=== PATIENT | male | born 1955 | race Caucasian/White ===

== ENCOUNTER 2021-01-10 08:29 | Outpatient (CLI) | payer OTHER, SELFPAY | END 2021-01-10 08:30 | disposition home or self-care (01) | LOC: ANHCOVIDVC 08:29 | DX: Z23 Encounter for immunization (principal) | CPT/HCPCS: 0001A; 91300 ==

== ENCOUNTER 2021-01-31 08:27 | Outpatient (CLI) | payer OTHER, SELFPAY | END 2021-01-31 08:28 | LOC: ANHCOVIDVC 08:27 | DX: Z23 Encounter for immunization (principal) | CPT/HCPCS: 0002A; 91300 ==

== ENCOUNTER 2021-07-28 09:48 | Outpatient (RCR) | payer OTHER, SELFPAY ==
--- NOTE | 2021-07-28 11:25 | STOPEVAL ---
SPEECH THERAPY INITIAL EVALUATION AND DISCHARGE: Thank you for referring Derian Tineo to [facility].? Please review, sign, date and return this evaluation and subsequent discharge [facility]. I agree with and certify that the following plan of care is medically necessary. Referring Physician Date Attending Provider: Chepe Matamoros, Outpatient Past Medical History Past Medical History Source of Past Medical History Patient Endocrine History Hx Diabetes Yes: Type 2 HEENT History Hx Cataracts Yes: removed Pain Assessment Timing of Pain Assessment Timing of Pain Assessment Assessment Self Report Self Report Pain Level 0 Pain Score Pain Score 0: Self Report Bedside Swallow Evaluation General Reports Dysphagia Yes: choking with drinking Onset of Dysphagia many, many years Related History 3 neck surgeries; previous History of Feeding Problems Previous Swallow Evaluation Meal Observed Bedside Swallows Other Factors Impacting Dysphagia Head/Neck Surgery History of Pneumonia No Intake Method Prior to Swallow Oral Evaluation Liquid Consistency Prior to Swallow Thin (0) Evaluation Cognition During Swallowing Alert,Attentive Consistency Solid Consistency Method of Presentation Finger/Hand Behaviors Observed Apparently Normal Swallow Occurrence of Coughing None Vocal Quality After Swallowing Clear Swallow Palpation Results Good Swallow Initiation,Strong Laryngeal Elevation Pureed Consistency Other Swallow Amount applesauce and pudding Method of Presentation Spoon Behaviors Observed Apparently Normal Swallow Occurrence of Coughing None Vocal Quality After Swallowing Clear Swallow Palpation Results Good Swallow Initiation,Strong Laryngeal Elevation Thin Uncontrolled 2 Method of Presentation Straw Behaviors Observed Apparently Normal Swallow Occurrence of Coughing None Vocal Quality After Swallowing Clear Swallow Palpation Results Good Swallow Initiation,Strong Laryngeal Elevation Thin Uncontrolled 1 Method of Presentation Cup Behaviors Observed Apparently Normal Swallow Occurrence of Coughing None Vocal Quality After Swallowing Clear Swallow Palpation Results Good Swallow Initiation,Strong Laryngeal Elevation Thin 5 mL Method of Presentation Spoon Behaviors Observed Apparently Normal Swallow Occurrence of Coughing None Vocal Quality After Swallowing Clear Swallow Palpation Results Good Swallow Initiation,Strong
== END 2021-07-28 16:21 | disposition home or self-care (01) ==
LOC: ANHST 09:48
PROVIDERS: Visit Provider Otolaryngology
DX: R13.10 Dysphagia, unspecified (principal)
CPT/HCPCS: 92610

== ENCOUNTER 2021-12-04 00:06 | Day surgery (SDC) | payer OTHER, SELFPAY ==
[2021-11-27 15:41] VITALS: BMI 27.6
[2021-12-04 09:18] VITALS: BP 136/76; PULSE 96; RESP 18; TEMP 36.9; O2SAT 98; BMI 29.6
[2021-12-04] MEDS: LACTATED RINGERS 1,000 ML 150 ML IV CONT (09:34)
[2021-12-04 09:38] LABS: Glucose Point of Care 195 mg/dl (65-105)
--- NOTE | 2021-12-04 09:49 | P.PNAN_ITS ---
Anes - Initial Pre Proc Eval Procedure: Operation Date: 12/04/21 10:15 Proposed Procedures p Colonoscopy - Bj Coppola MD Date/Time: 12/04/21 09:49 Surgeon: Bj Coppola MD Pre Op Diagnosis: positive cologuard Patient Data Age: 66 Gender: M Height: 1.8 m Weight: 96.4 kg Last Vital Signs Temp 98.5 F 12/04/21 09:18 Pulse 96 12/04/21 09:18 Resp 18 12/04/21 09:18 BP 136/76 12/04/21 09:18 Pulse Ox 98 12/04/21 09:18 Allergies Allergy/AdvReac Type Severity Reaction Status Date / Time No Known Allergies Allergy Verified 12/04/21 09:17 Home Medications Medication Instructions Recorded Confirmed Type atorvastatin 40 mg PO DAILY 11/27/21 11/27/21 History blood-glucose sensor [Dexcom G6 11/27/21 11/27/21 History Sensor] blood-glucose transmitter [Dexcom 11/27/21 11/27/21 History G6 Transmitter] folic acid 400 mcg PO DAILY 11/27/21 11/27/21 History insulin aspart U-100 [Novolog 1 sliding scale dose SUBCUT TID 11/27/21 11/27/21 History Flexpen U-100 Insulin] lisinopril 20 mg PO DAILY 11/27/21 11/27/21 History semaglutide [Ozempic] 0.5 mg SUBCUT WEEKLY 11/27/21 11/27/21 History Laboratory Tests 12/04/21 09:33 POC Capillary Glucose 195 mg/dl H mg/dl (65-105) Patient hx anesthesia problems: none Family hx anesthesia problems: none Results Review: All pre-operative results and documents have been reviewed as part of the pre-operative evaluation. [facility] [place] Family History Family History (Updated 05/18/18 @ 07:57 by DOCTOR UNKNOWN) Father Diabetes mellitus Family history of cardiovascular disease Social History Social History Smoking status: Never smoker Tobacco type: cigarettes Alcohol intake: current Alcohol use details: socially Substance use: never Substance use type: does not use Living arrangements: with family Anes - Eval Final PreProcedure Day of Procedure 12/04/21 09:49 Patient weight: obese Heart: regular rate and rhythm Lungs: clear to auscultation Airway: Mallampati scale class II Neurological: alert and oriented Last oral intake: >/= 8 hours ASA classification: II Emergent: no Anesthetic plan: proceed Anesthesia type and monitoring: general GIVS and standard monitoring Results Review: All pre-operative results and documents have been reviewed as part of the pre-operative evaluation. Informed Consent: The patient's anesthetic plan and its attendant risks and benefits were discussed with the patient/family/POA. Questions were solicited and answers provided to the satisfaction of the patient/family/POA.
--- NOTE | 2021-12-04 09:52 | WPDGICN ---
Assessment and Plan Assessment and plan (1) Positive colorectal cancer screening using Cologuard test: Code(s): R19.5 - Other fecal abnormalities Status: Acute Assessment and Plan: Patient presents for screening colonoscopy because of positive Cologuard test. Further recommendations will be given after endoscopy. GI Consult Note Consult date/time: 12/04/21 09:52 HPI: Derian Tineo is a 66 year old male Presents for screening colonoscopy. Patient recently found to have positive Cologuard test. Patient reports his weight appetite bowel movements are normal. He denies abdominal pain. He has had no bleeding. Family history is noncontributory. Review of Systems Review of Systems: All systems reviewed & are unremarkable except as noted in HPI and below [facility] Family History Family History (Updated 05/18/18 @ 07:57 by DOCTOR UNKNOWN) Father Diabetes mellitus Family history of cardiovascular disease Social History Social History Smoking status: Never smoker Tobacco type: cigarettes Alcohol intake: current Alcohol use details: socially Substance use: never Substance use type: does not use Living arrangements: with family Meds Home Medications and Allergies Home Medications Medication Instructions Recorded Confirmed Type atorvastatin 40 mg PO DAILY 11/27/21 11/27/21 History blood-glucose sensor [Dexcom G6 11/27/21 11/27/21 History Sensor] blood-glucose transmitter [Dexcom 11/27/21 11/27/21 History G6 Transmitter] folic acid 400 mcg PO DAILY 11/27/21 11/27/21 History insulin aspart U-100 [Novolog 1 sliding scale dose SUBCUT TID 11/27/21 11/27/21 History Flexpen U-100 Insulin] lisinopril 20 mg PO DAILY 11/27/21 11/27/21 History semaglutide [Ozempic] 0.5 mg SUBCUT WEEKLY 11/27/21 11/27/21 History Allergies Allergy/AdvReac Type Severity Reaction Status Date / Time No Known Allergies Allergy Verified 12/04/21 09:17 Vital Signs Vital Signs - 24 hr 12/04/21 09:18 Temperature 98.5 F Pulse Rate 96 Respiratory Rate 18 Blood Pressure 136/76 Pulse Oximetry 98 Exam Narrative: Physical exam reveals patient to be alert. Vital signs stable. HEENT exam unremarkable. Patient is anicteric. Lungs are clear to auscultation and percussion. Heart is without murmur or extra sounds. Abdominal exam bowel sounds present soft nontender with no organomegaly. Digital external rectal exam is normal.
[2021-12-04 10:26] VITALS: BP 104/65; PULSE 80; RESP 17; O2SAT 93
[2021-12-04 10:36] VITALS: BP 91/72; PULSE 91; RESP 17; O2SAT 98
[2021-12-04 10:46] VITALS: BP 101/50; PULSE 88; RESP 21; O2SAT 95
--- NOTE | 2021-12-04 10:58 | SUR.PHASEII ---
Pt blood sugar 157 per pt Dexcom.
== END 2021-12-04 10:58 | disposition home or self-care (01) ==
PROVIDERS: PCP Student in an Organized Health Care Education/Training Program; Visit Provider Internal Medicine Gastroenterology
PROC: 0DJD8ZZ Inspection of Lower Intestinal Tract, Via Natural or Artificial Opening Endoscopic (ICD-10-PCS; CPT 45378; principal; 2021-12-04 10:15)
DX: R19.5 Other fecal abnormalities (principal); D12.5 Benign neoplasm of sigmoid colon; Z79.4 Long term (current) use of insulin; Z79.899 Other long term (current) drug therapy; E66.9 Obesity, unspecified; Z68.29 Body mass index [BMI] 29.0-29.9, adult
CPT/HCPCS: 45385; 82948; 88305; J2001; J2704; J7120

== ENCOUNTER 2025-07-10 13:48 | Outpatient (CLI) | payer OTHER, SELFPAY ==
--- NOTE | ~2025-07-10 | US_ITS ---
EXAMINATION: US arterial ankle brachial ind DATE: 07/10/2025 14:38 INDICATION: Abnormal findings on diagnostic imaging TECHNIQUE: Segmental pressures and plethysmographic and Doppler waveforms of the brachial and lower extremity arteries were obtained. COMPARISON: None. FINDINGS: Right and left brachial artery pressures of 145 mm Hg and 141 mm Hg, respectively, are concordant (normal difference <= 30 mmHg). The right ankle-brachial index (ARPAN) is unable to be obtained due to inability to occlude the vessels at the right ankle (normal >= 0.9-1.0). The right great toe-brachial index (TBI) is 0.38 (normal >= 0.65). Arterial Doppler waveforms are biphasic with brisk systolic upstrokes at both right posterior tibial and dorsalis pedis arteries. The left ARPAN is similarly unable to be obtained due to inability to occlude the vessels at the left ankle. The left TBI is 0.97. Arterial Doppler waveforms are biphasic with brisk systolic upstrokes at both left posterior tibial and dorsalis pedis arteries. IMPRESSION: 1. Arterial occlusive disease to the right lower limb with mildly decreased right TBI. 2. No significant arterial occlusive disease to the left lower limb with normal left TBI. 2. ARPAN is unable to be obtained due to inability to occlude the arteries at either ankle which could be related to vessel wall calcification. Reviewed, dictated and finalized at location A. IMPRESSION: 1. Arterial occlusive disease to the right lower limb with mildly decreased rig ht TBI. 2. No significant arterial occlusive disease to the left lower limb with normal left TBI. 2. ARPAN is unable to be obtained due to inability to occlude the arteries at eit her ankle which could be related to vessel wall calcification.
--- OUTSIDE RECORDS SUMMARY | 2025-07-10 14:08 | XMS_ITS | Clinical Summary ---
Author Organization [facility] Address [facility] [place] [address] Care Team Providers Care Straight Knife Cutter Machine Name Role Phone BartolomesusyEliza ruiz Primary Care Provider + Allergies No known active allergies Medications Lancets (ONETOUCH ULTRASOFT) lancets 022 Active Continuous Blood Gluc Sensor (DEXCOM G7 SENSOR) MiscIndications :Type 2 diabetes mellitus with other circulatory complication, with long-term current use of insulin ([facility]) Apply and change sensor every 10 days to monitor glucose 9 each 1 023 Active GEMTESA 75 MG tablet Take 1 tablet (75 mg total) by mouth daily. 024 Active Insulin Pen Needle (PEN NEEDLES) 31G X 5 MM MiscIndications :Type 2 diabetes mellitus with other circulatory complication, with long-term current use of insulin ([facility]) 1 Device by Does not apply route 4 (four) times daily. 1000 each 2 024 Active methocarbamol (ROBAXIN) 500 MG tabletIndicatio ns:Muscle spasm TAKE 1 TABLET BY MOUTH EVERY 8 HOURS NEEDED FOR SPASMS 90 tablet 025 Active Insulin Glargine, 2 Unit Dial, (TOUJEO MAX SOLOSTAR) 300 UNIT/ML Solution Pen-injectorInd ications:Type 2 diabetes mellitus with other circulatory complication, with long-term current use of insulin ([facility]CC) INJECT 86 UNITS INTO THE SKIN DAILY 24 mL 1 025 Active semaglutide (OZEMPIC) 2 mg/dose injection (PEN)Indication s:Diabetes Mellitus Inject 2 mg into the skin once a week. Indications: Diabetes 9 mL 1 025 Active atorvastatin (LIPITOR) 40 MG tabletIndicatio ns:Hyperlipidem ia, unspecified TAKE 1 TABLET BY MOUTH EVERYDAY AT BEDTIME 90 tablet 025 Active rOPINIRole (REQUIP) 0.25 MG tabletIndicatio ns:Abnormal x-ray,Atheroscl erotic plaque Take 1 tablet 1 to 3 hours prior to initiation of sleep every night 30 tablet 2 025 Active tadalafil (CIALIS) 20 MG tabletIndicatio ns:Erectile dysfunction, unspecified erectile dysfunction type TAKE 1 TABLET BY MOUTH EVERY DAY NEEDED FOR ERECTILE DYSFUNCTION 18 tablet 1 025 Active insulin aspart (NOVOLOG FLEXPEN) 100 UNIT/ML injection (PEN)Indication s:Type 2 diabetes mellitus with other circulatory complication, with long-term current use of insulin ([facility]) INJECT 5 UNITS SUBCUTANEOUSLY 3 TIMES A DAY BEFORE MEALS 45 mL 1 025 Active amLODIPine (NORVASC) 5 MG tabletIndicatio ns:Essential (primary) hypertension TAKE 1 TABLET (5 MG TOTAL) BY MOUTH DAILY. 90 tablet 3 025 Active amLODIPine (NORVASC) 5 MG tabletIndicatio ns:Essential (primary) hypertension TAKE 1 TABLET (5 MG TOTAL) BY MOUTH DAILY. 90 tablet 025 2024 Discontinued insulin aspart (NOVOLOG FLEXPEN) 100 UNIT/ML injection (PEN)Indication s:Type 2 diabetes mellitus with other circulatory complication, with long-term current use of insulin ([facility]) INJECT 0-5 UNITS SUBCUTANEOUSLY 3 TIMES A DAY BEFORE MEALS 025 2024 Discontinued tadalafil (CIALIS) 20 MG tabletIndicatio ns:Erectile dysfunction, unspecified erectile dysfunction type TAKE 1 TABLET BY MOUTH EVERY DAY NEEDED FOR ERECTILE DYSFUNCTION 6 tablet 1 025 2024 Discontinued insulin aspart (NOVOLOG FLEXPEN) 100 UNIT/ML injection (PEN)Indication s:Type 2 diabetes mellitus with other circulatory complication, with long-term current use of insulin ([facility]) INJECT 15 UNITS SUBCUTANEOUSLY 3 TIMES A DAY BEFORE MEALS 45 mL 1 025 2024 Discontinued(R eorder) Active Problems Problem Noted Date Diagnosed Date Esophageal dysmotility 08/27/2022 Dysphagia, oropharyngeal phase 08/27/2022 Cervical spinal stenosis 08/25/2019 Overview (08/15/2021): Added automatically from request for surgery [id number] Type 2 diabetes mellitus ([facility]) 03/24 Overview (08/15/2021): DMII WO CMP UNCNTRLD Pure hypercholesterolemia 03/24/2014 Overview (08/15/2021): PURE HYPERCHOLESTEROLEM Hypertension 03/24/2014 Overview (08/15/2021): HYPERTENSION NOS Encounters Date Type Department Care Team Description 06/18/2025 MyChart Message Enc [facility] Family & Internal [address] [address] Eliza Payne DO novalog 06/04/2025 MyChart Message Enc [facility] Family Internal [address] [address] Eliza Payne, DO Phone number 05/03/2025 8:40 AM CDT Office Visit [facility] Family & Internal [address] [address] Eliza Payne DO Diabetes 05/03/2025 Results Follow-Up [facility] Internal [address] [address] Eliza Payne, DO HEMOGLOBIN, GLYCOSYLATED, XR FOOT RT 3V, VITAMIN B-12, Additional followed-up results: 7 05/03/2025 Travel from Last 3 Months Immunizations Immunization Administration Dates Next Due Arexvy Respiratory Syncytial Virus (RSV, adjuvanted) 0.5 mL, PF 09/17/2023 Fluad influenza vaccine, Ac drivalent (aIIV4), Inactivated, adjuvanted, preservative free, 0.5 mL,IM use 09/17/2023 Fluzone High Dose (IIV, trivalent, 0.5mL) 2023 Influenza (Generic) 08/08/2019,08/28/2018 Influenza Adult (Generic) 08/21/2022 Pneumococcal (Prevnar 20) 01/26/2023 Shingrix 01/03/2020,11/15/2019,09/13/2019 Tdap (Adacel) 08/15/2021 Family History Medical History Relation Comments Diabetes Father Heart Disease Father Diabetes Mother PA Paternal Grandfather Diabetes Sister Relation Status Comments Father Maternal Grandfather Maternal Grandmother Mother Paternal Grandfather Paternal Grandmother Sister Social History Tobacco Use Types Packs/Day Years Used Date Smoking Tobacco: Never Passive Smoke Exposure: Past Smokeless Tobacco: Never Tobacco Cessation:Counseling Given: Not Answered Alcohol Use Standard Drinks/Week Comments Yes 6.7 (1 standard drin k = 0.6 oz pure alcohol) 2.5 glass of wine 3 times a week PHQ-2 Answer Date Recorded Patient Health Questionnaire-2 Score 0 01/31/2025 Sex and Gender Information Value Date Recorded Sex Assigned at Male 03/14/2024 2:46 PM CDT 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 Gender Identity Male 03/14/2024 2:46 PM CDT Sexual Orientation Straight 03/14/2024 2: 46 PM CDT Occupation Industry Job Start Date Job End Date Not on file Not on file Not on file Not on file Last Filed Vital Signs Vital Sign Reading Time Taken Comments Blood Pressure 130/78 05/03/2025 8:48 AM CDT Pulse 87 05/03/2025 8:48 AM CDT Temperature 36.7 C (98.1 F) 05/03/2025 8:48 AM CDT Respiratory Rate 16 05/03/2025 8:48 AM CDT Oxygen Saturation 98% 05/03/2025 8:48 AM CDT Inhaled Oxygen Concentration - - Weight 88.8 kg (195 lb 11.2 oz) 05/03/2025 8:48 AM CDT Height 177.8 cm (5' 10) 05/03/2025 8:48 AM CDT Body Mass Index 28.08 05/03/2025 8:48 AM CDT Plan of Treatment Upcoming Encounters Date Type Department Care Team (Late st Contact Info) Description 08/03/2025 8:00 AM CDT Office Visit [facility] Family & Internal Medicine - [address] [id number] [place] [address] Eliza Payne DO [facility] [place] [address] Health Maintenance Due Date Last Done Comments Annual Medicare Wellness Visit 2022 COVID-19 Vaccine ( season) 2025 08/16/2024, 08/22/2023, 10/23/2022, Additional history exists Postponed from 02/14/2025 (Future Appointment) Hemoglobin A1C 11/02/2025 05/03/2025, 01/07, 10/02/2024, Additional history exists Diabetes: Retinopathy Eye Exam 01/10/2026 01/13/2024, 11/11/2023, 07/22/2023, Additional history exists Postponed from 01/12/2025 (Going to Outside Clinic) Kidney Health Evaluation 05/03/2026 05/03/2025 Lipid Panel 05/03/2026 05/03/2025, 09/09, 10/22/2023, Additional history exists Colorectal Cancer Screening Colonoscopy (10 Years) 12/04/2026 12/04/2021 DTaP, Tdap and Td Vaccines (2 - Td or Tdap) 08/15/2031 08/15/2021 Zoster Vaccines Completed 01/03/2020, 06/2020, 09/13/2019 Colorectal Cancer Screening FIT-DNA (3 Years) Discontinued 09/03/2021 Hepatitis C Completed 03/20/2022 Pneumococcal Vaccine: 50+ Years Completed 01/26/2023 RSV Immunization or 60+ Years Completed 09/17/2023 PHQ-2 (Physician [place]) Completed 01/31/2025 Meningococcal B Vaccine Aged Out No l onger eligible based on patient's age to complete this topic Meningococcal Vaccine Aged Out No jaswinder savana eligible based on patient's age to complete this topic RSV Immunizations Under 20 Months Aged Out No longer eligible based on patient's age to complete this topic Procedures Procedure Name Priority Date/Time Associated Diagnosis Comments VITAMIN D, 25 OH Routine 05/03/2025 9:48 AM CDT Type 2 diabetes mellitus with other circulatory complication, with long-term current use of insulin (CMS/HCC HHS/HCC) Hypertension associated with type 2 diabetes mellitus (CMS/HCC HHS/HCC) Hyperlipidemia associated with type 2 diabetes mellitus (CMS/HCC HHS/HCC) Vitamin D deficiency CBC W/DIFF AUTOMATED Routine 05/03/2025 9:48 AM CDT Type 2 diabetes mellitus with other circulatory complication, with long-term current use of insulin (CMS/HCC HHS/HCC) Hypertension associated with type 2 diabetes mellitus (CMS/HCC HHS/HCC) Hyperlipidemia associated with type 2 diabetes mellitus (CMS/HCC HHS/HCC) COMPREHENSIVE METABOLIC PANEL Routine 05/03/2025 9:48 AM CDT Type 2 diabetes mellitus with other circulatory complication, with long-term current use of insulin (CMS/HCC HHS/HCC) Hypertension associated with type 2 diabetes mellitus (CMS/HCC HHS/HCC) Hyperlipidemia associated with type 2 diabetes mellitus (CMS/HCC HHS/HCC) ALBUMIN URINE RANDOM W/CREATININE Routine 05/03/2025 9:48 AM CDT Type 2 diabetes mellitus with other circulatory complication, with long-term current use of insulin (CMS/HCC HHS/HCC) Hypertension associated with type 2 diabetes mellitus (CMS/HCC HHS/HCC) Hyperlipidemia associated with type 2 diabetes mellitus (CMS/HCC HHS/HCC) TSH W/REFLEX Routine 05/03/2025 9:48 AM CDT Type 2 diabetes mellitus with other circulatory complication, with long-term current use of insulin (CMS/HCC HHS/HCC) Hypertension associated with type 2 diabetes mellitus (CMS/HCC HHS/HCC) Hyperlipidemia associated with type 2 diabetes mellitus (CMS/HCC HHS/HCC) LIPID PANEL Routine 05/03/2025 9:48 AM CDT Type 2 diabetes mellitus with other circulatory complication, with long-term current use of insulin (CMS/HCC HHS/HCC) Hypertension associated with type 2 diabetes mellitus (CMS/HCC HHS/HCC) Hyperlipidemia associated with type 2 diabetes mellitus (CMS/HCC HHS/HCC) FERRITIN Routine 05/03/2025 9:48 AM CDT Type 2 diabetes mellitus with other circulatory complication, with long-term current use of insulin (CMS/HCC HHS/HCC) Hypertension associated with type 2 diabetes mellitus (CMS/HCC HHS/HCC) Hyperlipidemia associated with type 2 diabetes mellitus (CMS/HCC HHS/HCC) Restless leg VITAMIN B-12 Routine 05/03/2025 9:48 AM CDT Type 2 diabetes mellitus with other circulatory complication, with long-term current use of insulin (CMS/HCC HHS/HCC) Hypertension associated with type 2 diabetes mellitus (CMS/HCC HHS/HCC) Hyperlipidemia associated with type 2 diabetes mellitus (CMS/HCC HHS/HCC) Restless leg XR FOOT RT 3V Routine 05/03/2025 9:18 AM CDT Right foot pain COLLECTION VENOUS BLOOD VENIPUNCTURE Routine 05/03/2025 9:13 AM CDT Type 2 diabetes mellitus with other circulatory complication, with long-term current use of insulin (CMS/HCC HHS/HCC) Hypertension associated with type 2 diabetes mellitus (CMS/HCC HHS/HCC) Hyperlipidemia associated with type 2 diabetes mellitus (CMS/HCC HHS/HCC) COLLECT.CAPILLARY (FNGR,HEEL,EAR) Routine 05/03/2025 8:36 AM CDT Type 2 diabetes mellitus with other circulatory complication, with long-term current use of insulin (CMS/HCC HHS/HCC) HEMOGLOBIN, GLYCOSYLATED Routine 05/03/2025 Type 2 diabetes mellitus with other circulatory complication, with long-term current use of insulin (CMS/HCC HHS/HCC) DIABETIC RETINOPATHY EXAM (POSITIVE)(SCAN ORDER) Routine 01/13/2024 HEPATITIS C ANTIBODY Routine 03/20/2022 9:11 AM CDT Need for hepatitis C screening test COLONOSCOPY GENERIC (SCAN ORDER) 12/04/2021 COLOGUARD (EXACT SCIENCE) Routine 09/03/2021 9:45 AM CDT Screening for malignant neoplasm of colon from Last 3 Months or Most Recently Relevant to Health Maintenance Results * TSH W/REFLEX (05/03/2025 9:48 AM CDT) TSH 1.128 0.358 - 3.740 uIU/ML 05/03/2025 5:03 PM CDT [facility] 05/03/2025 9:48 AM CDT Eliza Payne LABORATORY Final Re sult Performing Organization Address [facility]/ZIP Co de Phone Number [facility] [address] [place] [phone], * VITAMIN B-12 (05/03/2025 9:48 AM CDT) Pathologist [facility] VITAMIN B12 S/P/B 316 193 - 986 PG/ML 05/03/2025 5:03 PM CDT [facility] 05/03/2025 9:48 AM CDT Eliza Payne LABORATORY Final Re sult Performing Organization Address City/[facility]/ZIP Co de Phone Number [facility] [address] [place] [address], [place] [phone] * ALBUMIN URINE RANDOM W/CREATININE (05/03/2025 9:48 AM CDT) Pathologist [facility] MICROALBUMIN (U) 18.0 <20 MG/L 05/03/20 6:27 PM CDT [facility] CREATININE RANDOM (U) 130.2 MG/DL 05/03/2025 6:27 PM CDT [facility] ALBUMIN/CREAT RATIO 13.8 <30 MG/G 05/03/2025 6:27 PM CDT [facility] URINE SPECIMEN / Unknown 05/03/2025 9:48 AM CDT Eliza Payne DO URINE ORDERABLES Final R esult [facility] MICHAEL, [place] [address] [place] [address], * (ABNORMAL) COMPREHENSIVE METABOLIC PANEL (05/03/2025 9:48 AM CDT) Pathologist [facility] SODIUM S/P/B 141 136 - 145 MMOL/L 05/03/2025 5:03 PM CDT [facility] POTASSIUM S/P/B 4.7 3.5 - 5.1 MMOL/L 05/03/2025 5:03 PM CDT [facility] CHLORIDE S/P/B 104 98 - 107 MMOL/L 05/03/2025 5:03 PM CDT [facility] CO2 30.9 21 - 32 MMOL/L 05/03/2025 5:03 PM CDT [facility] GLUCOSE 129(H) 70 - 99 MG/DL 05/03/2025 5:03 PM T [facility] BUN 22(H) 7 - 18 MG/DL 05/03/2025 5:03 PM CDT [facility] CREATININE S/P/B 1.15 0.70 - 1.30 MG/DL 05/03/2025 5:03 PM CDT [facility] CALCIUM S/P/B 9.8 8.4 - 10.5 MG/DL 05/03/2025 5:03 PM CDT [facility] BILIRUBIN TOTAL S/P/B 0.9 0.2 - 1.0 MG/DL 05/03/2025 5:03 PM [facility] ALKALINE PHOSPHATASE S/P/B 70 45 - 115 U/L 05/03/2025 5:03 PM [facility] AST 17 15 - 37 U/L 05/03/2025 5:03 PM [facility] ALT 26 16 - 63 U/L 05/03/2025 5:03 PM [facility] TOTAL PROTEIN S/P/B 7.1 6.4 - 8.2 G/DL 05/03/2025 5:03 PM [facility] ALBUMIN S/P/B 4.1 3.4 - 5.0 G/DL 05/03/2025 5:03 [facility] ANION GAP 6.1 5 - 15 MMOL/L 05/03/2025 5:03 PM [facility] Comment:REFERENCE RANGE NOT ESTABLISHED OSMOLALITY (CALC) 297 MOSM/KG 025 5:03 PM [facility] Comment:REFERENCE RANGE NOT ESTABLISHED GFR ESTIMATE 69(L) >90 ML/MIN/1. 73 M2 05/03/2025 5:03 PM [facility] GFR NOTES GFR REFERENCE S: 05/03/2025 5:03 [facility] Comment: THE ESTIMATED GFR IS CALCULATED USING THE 2020 CKD-EPI EQUATION. THE FOLLOWING CATEGORIES FOR GRADING RENAL FUNCTION ARE RECOMMENDED BY THE INTERNATIONAL SOCIETY OF NEPHROLOGY (KDIGO 2012 CLINICAL PRACTICE GUIDELINE). G1,NORMAL OR HIGH: >89 ml/min/1.73 m2 G2,MILDLY DECREASED: 60-89 ml/min/1.73 m2 G3A,MILDLY TO MODERATELY DECREASED: 45-59 ml/min/1.73 m2 G3B,MODERATELY TO SEVERELY DECREASED: 30-44 ml/min/1.73 m2 G4,SEVERELY DECREASED: 15-29 ml/min/1.73 m2 G5,KIDNEY FAILURE: <15 ml/min/1.73 m2 05/03/2025 9:48 AM CDT Eliza Payne DO LABORATORY Final Re sult [facility] [place] [address] [place] [address], [place] [phone] * (ABNORMAL) LIPID PANEL (05/03/2025 9:48 AM CDT) CHOLESTEROL 137 <200 MG/DL 05/03/2025 5:03 PM CDT [facility] TRIGLYCERIDES 90 <150 MG/DL 05/03/2025 5:03 PM CDT [facility] HDL 39(L) >40 MG/DL 05/03/2025 5:03 PM CDT [facility] LDL-C 80 <100 MG/DL 05/03/2025 5:03 PM CDT [facility] VLDL CALCULATION 18 5 - 28 MG/DL 05/03/2025 5:03 PM CDT [facility] CHOL/HDL RATIO 3.5 0.0 - 4.0 05/03/2025 5:03 PM CDT [facility] LDL/HDL 2.1 0.41 - 2.13 05/03/2025 5:03 PM CDT [facility] NON HDL CHOLESTEROL 98 <140 MG/DL 05/03/2025 5:03 PM CDT [facility] 05/03/2025 9:48 AM CDT Eliza Payne DO LABORATORY Final Re sult [facility] [place] [address] [place] [address], [place] [phone] * (ABNORMAL) CBC W/DIFF AUTOMATED (05/03/2025 9:48 AM CDT) [facility] WBC 6.22 4.00 - 10.80 x10'3/uL 05/03/2025 3:30 PM CDT [facility] RBC 4.94 4.50 - 6.10 x10'6/uL 05/03/2025 3:30 PM CDT [facility] HGB 15.6 13.0 - 18.0 G/DL 05/03/2025 3:30 PM CDT [facility] HCT 46.1 37.0 - 52.0 % 05/03/2025 3:30 PM CDT [facility] MCV 93.3 78.0 - 100.0 FL 05/03/2025 3:30 PM CDT [facility] MCH 31.6(H) 27.0 - 31.0 PG 05/03/2025 3:30 PM CDT [facility] MCHC 33.8 33.0 - 36.0 G/DL 05/03/2025 3:30 PM CDT [facility] RDW 13.1 11.5 - 14.5 % 05/03/2025 3:30 PM CDT [facility] PLT 241 150 - 350 x10'3/uL 05/03/2025 3:30 PM CDT [facility] MPV 10.3 7.4 - 10.4 FL 05/03/2025 3:30 PM CDT [facility] DIFFERENTIAL TYPE AUTOMATED DIFFERENTIAL 05/03/2025 3:30 PM CDT [facility] NEUTROPHILS % 62.4 % 05/03/2025 3:30 PM CDT [facility] LYMPHOCYTES % 24.8 % 05/03/2025 3:30 PM CDT [facility] MONOCYTES % 8.5 % 05/03/2025 3:30 PM CDT [facility] EOSINOPHILS % 3.1 % 05/03/2025 3:30 PM CDT [facility] BASOPHILS % 1.0 % 05/03/2025 3:30 PM CDT [facility] IMMATURE GRANS % 0.2 % 05/03/2025 3:30 PM CDT [facility] ABS. NEUTROPHILS 3.89 1.60 - 8.30 x10'3/uL 05/03/2025 3:30 PM CDT [facility] ABS. LYMPHOCYTES 1.54 0.80 - 4.70 x10'3/uL 05/03/2025 3:30 PM CDT [facility] ABS. MONOCYTES 0.53 0.00 - 1.50 x10'3/uL 05/03/2025 3:30 PM CDT [facility] ABS. EOSINOPHILS 0.19 0.00 - 0.40 x10'3/uL 05/03/2025 3:30 PM CDT [facility] ABS. BASOPHILS 0.06 0.00 - 0.20 x10'3/uL 05/03/2025 3:30 PM CDT [facility] ABS. IMMATURE GRANULOCYTES 0.01 0.00 - 0.03 x10'3/uL 05/03/2025 3:30 PM CDT [facility] 05/03/2025 9:48 AM CDT us Eliza Payne DO LABORATORY Final Re sult [facility] [address] [place] [address], * VITAMIN D, 25 OH (05/03/2025 9:48 AM CDT) Pathologist [facility] VITAMIN D 25 HYDROXY TOTAL S/P/B 39.4 30 - 100 NG/ML 05/03/2025 5:03 PM CDT [facility] Comment: DEFICIENT <20 INSUFFICIENT 20-30 SUFFICIENT 30-100 05/03/2025 9:48 AM CDT Eliza Payne DO LABORATORY Final Re sult Performing Organization Address [facility] Co de Phone Number [facility] [address] [place] [address], [place] [phone] * FERRITIN (05/03/2025 9:48 AM CDT) FERRITIN 147.0 26 - 388 NG/ML 05/03/2025 5:03 PM CDT [facility] 05/03/2025 9:48 AM CDT Eliza Payne DO LABORATORY Final Re sult Performing Organization Address [facility] de Phone Number [facility] [address] [place] [address], [place] [phone] * XR FOOT RT 3V (05/03/2025 9:18 AM CDT) Anatomical Region Laterality Modality Foot Radiographic Paula ging 05/07/2025 10:0 8 AM CDT Impressions 05/07/2025 10:10 AM CDT IMPRESSION: No acute osseous abnormality. No osseous healing changes identified. Ordered By: ELIZA PAYNE Interpreted By: Percy Awan MD, 05/07/2025 10:08 AM Narrative 05/07/2025 10:10 AM CDT [facility] Family and Internal Medicine - [address] [address] Examination: XR FOOT RT 3V Exam time: 05/03/2025 9:18 AM Clinical history: Chronic pain. Pain fourth metatarsal region/plantar aspect after walking. No known injury. Comparison: No prior exam Technique: AP, oblique, and lateral views right foot without weightbearing Findings: Forefoot and hindfoot alignment is within normal limits on nonweightbearing views. There is no evidence of fracture, subluxation, or dislocation right foot. No evidence of periosteal reactions or osseous healing changes. Atherosclerotic calcifications are visualized throughout the right foot and the anterior posterior tibial artery distributions. Accessory navicular ossifications. Procedure Note Percy Awan MD - 05/07/2025 [facility] [place] [address] Examination: XR FOOT RT 3V Exam time: 05/03/2025 9:18 AM Clinical history: Chronic pain. Pain fourth metatarsal region/plantaraspect after walking. No known injury. Comparison: No prior exam Technique: AP, oblique, and lateral views right foot withoutweightbearing Findings: Forefoot and hindfoot alignment is within normal limits onnonweightbearing views. There is no evidence of fracture, subluxation, ordislocation right foot. No evidence of periosteal reactions or osseoushealing changes. Atherosclerotic calcifications are visualized throughoutthe right foot and the anterior posterior tibial artery distributions.Accessory navicular ossifications. IMPRESSION: No acute osseous abnormality. No osseous healing changes identified. Ordered By: ELIZA PAYNE Interpreted By: Percy Awan MD, 05/07/2025 10:08 AM Eliza Payne DO GENERAL IMAGING Final Re sult * HEMOGLOBIN, GLYCOSYLATED (05/03/2025) HGB A1C 5.3 % [facility] 05/03/2025 Eliza Payne DO LABORATORY Final Re sult [address] [address], * DIABETIC RETINOPATHY EXAM (POSITIVE) (01/13/2024) us Doc [facility] Scanned SCANNING Final Resu lt [facility] ONBASE * HEPATITIS C ANTIBODY (03/20/2022 9:11 AM CDT) Pathologist [facility] HEPATITIS C AB NON-REACTI VE NON-REACT NOMI 03/20/2022 9:42 PM CDT [facility] Comment: ANTIBODIES TO HCV NOT DETECTED. DOES NOT EXCLUDE THE POSSIBILITY OF EXPOSURE TO HCV. 03/20/2022 9:11 AM CDT Eliza Payne DO LABORATORY Final Re sult [facility] [address] [place] [address], [id number] * COLONOSCOPY GENERIC (12/04/2021) 12/04/2021 Narrative 12/04/2021 Ordered by an unspecified provider. us Documents Scanned SCANNING Final Result * (ABNORMAL) COLOGUARD ([employer] SCIENCE) (09/03/2021 9:45 AM CDT) Pathologist [facility] COLOGUARD RESULT Positive( A) Negative [employer] (CLIA #:[id number]) Comment: POSITIVE TEST RESULT. A positive Cologuard result should be followed with a colonoscopy or visual examination of the colon. The normal value (reference range) for this assay is negative. TEST DESCRIPTION: Composite algorithmic analysis of stool DNA-biomarkers with hemoglobin immunoassay. Quantitative values of individual biomarkers are not reportable and are not associated with individual biomarker result reference ranges. Cologuard is intended for colorectal cancer screening of adults of either sex, 45 years or older, who are at average-risk for colorectal cancer (CRC). Cologuard has been approved for use by the [place]. FDA. The performance of Cologuard was established in a cross sectional study of average-risk adults aged 50-84. Cologuard performance in patients ages 45 to 49 years was estimated by sub-group analysis of near-age groups. Colonoscopies performed for a positive result may find as the most clinically significant lesion: colorectal cancer [4.0%], advanced adenoma (including sessile serrated polyps greater than or equal to 1cm diameter) [20%] or non- advanced adenoma [31%]; or no colorectal neoplasia [45%]. These estimates are derived from a prospective cross-sectional screening study of 10,000 individuals at average risk for colorectal cancer who were screened with both Cologuard and colonoscopy. (Stephanie Osman al, N Engl J Med 2014;370(14):9252-9584.) Cologuard may produce a false negative or false positive result (no colorectal cancer or precancerous polyp present at colonoscopy follow up). A negative Cologuard test result does not guarantee the absence of CRC or advanced adenoma (pre-cancer). The current Cologuard screening interval is every 3 years. ([place] [employer] and U.S. Multi-Society Task Force). Cologuard performance data in a 10,000 patient pivotal study using colonoscopy as the reference method can be accessed at the following location: [email or web address]. Additional description of the Cologuard test process, warnings and precautions can be found at [email or web address]. STOOL STOOL SPECIMEN / Unknown 09/03/2021 9:45 AM CDT 09/04/2021 6:36 PM CDT Eliza Payne DO BODY FLUIDS AND STOOLS O RDERABLES Final Result [facility] ([facility]) [address] [place] [address], [employer] (CLIA #:[id number]) [address] [place] [address] from Last 3 Months or Most Recently Relevant to Health Maintenance Insurance AETNA Care Teams Straight Knife Cutter Machine Relationship Specialty Start Date End Date Eliza Payne DO [address] [place] [id number] PCP - General FAMILY PRACTICE 08/15/21
--- OUTSIDE RECORDS SUMMARY | 2025-07-10 14:08 | XMS_ITS | Encounter Summary ---
Author Organization [facility] Healthcare Address [address] [place] [address] Care Team Providers Care Pickling Solution Maker Name Role Phone Aki Zhang MD Primary Care Provider [phone] Joey Torres DO Primary Care Provide r Reason for Referral * Diagnostic Imaging (Routine) - Closed Specialty Diagnoses / Procedures Referred By Contac t Referred To Contact Diagnoses Dysphagia, unspecified type Procedures FL Esophagram Aki Zhang MD Phone: tel: fax: [address] [phone] Referral ID Status Reason Start Date Expiration Date Visits Re quested Visits Authorized [id number] Closed 11/16/2018 05/27/2020 1 1 RY WORKER Encounter Details Date Type Department Care Team (Late st Contact Info) Description 11/16/2018 Community Orders [facility] EpicCare Link Aki Zhang MD [address] [facility] [address] [place] [address] Dysphagia, unspecified type (Primary Dx) Social History Tobacco Use Types Packs/Day Years Used Date Smoking Tobacco: Never Smokeless Tobacco: Never Alcohol Use Standard Drinks/Week Comments Yes 0 (1 standard drink = 0.6 oz pur e alcohol) Sex and Gender Information Value Date Recorded Sex Assigned at Not on file Legal Sex Male 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 Mild esophageal dysmotility 2. Small hiatal hernia Dictated by: Darius Fernandez M.D. Electronically signed by: Arti Martinez M.D. Narrative 12/09/2018 1:14 PM WINERY WORKER EXAMINATION: BARIUM ESOPHAGRAM HISTORY: Dysphagia TECHNIQUE: The patient was given barium as well as effervescent crystals to drink, and multiple fluoroscopic and conventional overhead radiographs were obtained. FINDINGS: The patient's swallowing function is normal. The esophageal mucosa is normal without fold abnormalities or masses. There is mild dysmotility with minimal breakup of the primary wave and secondary wave with some tertiary waves. There is passage of contrast through a normal gastroesophageal junction. There is a small hiatal hernia. The visualized portions of the stomach are normal. No reflux was elicited with provocative maneuvers. Procedure Note Arti Martinez MD PhD - 12/09/2018 EXAMINATION: BARIUM ESOPHAGRAM HISTORY: Dysphagia TECHNIQUE: The patient was given barium as well as effervescent crystals to drink, and multiple fluoroscopic and conventional overhead radiographs were obtained. FINDINGS: The patient's swallowing function is normal. The esophageal mucosa is normal without fold abnormalities or masses. There is mild dysmotility with minimal breakup of the primary wave and secondary wave with some tertiary waves. There is passage of contrast through a normal gastroesophageal junction. There is a small hiatal hernia. The visualized portions of the stomach are normal. No reflux was elicited with provocative maneuvers. IMPRESSION: 1. Mild esophageal dysmotility 2. Small hiatal hernia Dictated by: Darius Fernandez M.D. Electronically signed by: Arti Martinez M.D. Aki Zhang MD IMG FLUOROSCOPY PROCEDURES Fin al Result documented in this encounter Visit Diagnoses Diagnosis Dysphagia, unspecified type- Primary Dysphagia, unspecified type documented in this encounter Care Teams Pickling Solution Maker Relationship Specialty Start Date End Date Aki Zhang MD [address] [facility] [address] [place] [address] PCP - General Endocrinology Diabetes & Metabolism 08/12/18 08/26/22 Joey Torres DO [address] [place] [id number] PCP - General Family Medicine 08/27/22 documented as of this encounter
--- OUTSIDE RECORDS SUMMARY | 2025-07-10 14:09 | XMS_ITS | Clinical Summary ---
Author Organization [facility] Address [address] [place] [address] Care Team Providers Care Service Aide Name Role Phone Joey Torres Primary Care Provider + Source Comments [facility],non-owned Affiliates and Associated Physician Practices is amultiple site organization consisting of ambulatory clinics and hospital sitesin [place], [place], [place] and [place]. This disclosure is being madepursuant to the Care Everywhere program and may not contain all information available regarding this patient. Last updated 18.[facility] Allergies No known active allergies Medications * Be aware that medications may not be up to date on this document. Alwaysverify current medications with the patient. Insulin Glargine (BASAGLAR KWIKPEN SC) Active LISINOPRIL PO Active benzonatate (TESSALON) 200 MG capsule Take 1 capsule by mouth 3 times daily as needed for Cough 30 capsule 12/07/2019 Active Social History Tobacco Use Types Packs/Day Years Used Date Smoking Tobacco: Never Smokeless Tobacco: Never Sex and Gender Information Value Date Recorded Sex Assigned at Not on file Legal Sex Male 7:08 AM CDT Gender Identity Not on file Sexual Orientation Not on file Last Filed Vital Signs Vital Sign Reading Time Taken Comments Blood Pressure 146/76 12/07/2019 2:12 PM CREDIT SUPPORT SPECIALIST Pulse 113 12/07/2019 2:12 PM CREDIT SUPPORT SPECIALIST Temperature 37.2 C (98.9 F) 12/07/2019 2:12 PM CREDIT SUPPORT SPECIALIST Respiratory Rate 16 12/07/2019 2:12 PM CREDIT SUPPORT SPECIALIST Oxygen Saturation 97% 12/07/2019 2:12 PM CREDIT SUPPORT SPECIALIST Inhaled Oxygen Concentration - - Weight 90.7 kg (200 lb) 12/07/2019 2:12 PM CREDIT SUPPORT SPECIALIST Height 180.3 cm (5' 11) 12/07/2019 2:12 PM CREDIT SUPPORT SPECIALIST Body Mass Index 27.89 12/07/2019 2:12 PM CREDIT SUPPORT SPECIALIST Plan of Treatment Health Maintenance Due Date Last Done Comments COLOGUARD (AGES 45-75) - COL ON CA SCREENING 1957 COLON MONITORING 1957 COLONOSCOPY - COLON CA SCREENING 1957 CT COLONOGRAPHY - COLON CA SCREENING 1957 Colorectal Cancer Screening 1957 FIT - COLON CA SCREENING 1957 FLEX SIG - COLON CA SCREENING 1957 LIPID TESTING 1957 HEPATITIS C SCREENING 04/08/1975 DTAP/TDAP/TD VACCINES (1 - Tdap) 1976 PNEUMOCOCCAL VACCINE 50+ (1 of 1 - PCV) 2007 ZOSTER VACCINE (1 of 2) 2007 SCREENING FOR DIABETES 12/07/2019 09/19/2013 COVID-19 VACCINE (1 - 2023-2 5 season) 2024 DEPRESSION SCREENING 11/08/2024 INFLUENZA VACCINE (#1) 2025 Respiratory Syncytial Virus (RSV) Vaccine Pt: or over 60 yrs (1 - 1-dose 75+ series) 2032 HEPATITIS B VACCINE Aged Out No longe r eligible based on patient's age to complete this topic HIB VACCINE Aged Out No longer eligi ble based on patient's age to complete this topic HPV VACCINE Aged Out No longer eligi ble based on patient's age to complete this topic MENINGOCOCCAL (Group B) VACC INE SHARED DECISION-MAKING Aged Out No longer eligibl e based on patient's age to complete this topic MENINGOCOCCAL GROUPS A/C/Y/W VACCINE Aged Out No longer eligible b ased on patient's age to complete this topic Insurance HE[employer]LINK HEALTHLINK AET Care Teams Service Aide Relationship Specialty Start Date End Date Joey Torres DO [address] [place] [id number] PCP - General 12/08/21
--- OUTSIDE RECORDS SUMMARY | 2025-07-10 14:09 | XMS_ITS | Clinical Summary ---
Author Organization [facility] Address [address] [place] [address] Phone Care Team Providers Care Certified Drug Counselor Name Role Phone Nelly Mujica DO Primary Care Provider [phone] Allergies No known active allergies Medications ondansetron (ZOFRAN) 4 mg Tablet Take 1 Tab by mouth every 8 hours as needed for Nausea/Emesis. 20 Tab None 3 Active ibuprofen (MOTRIN) 200 mg tablet Take 400 mg by mouth every 6 hours as needed. Active apremilast (OTEZLA ORAL) Take 0.5 mg by mouth every 7 days. Active insulin degludec (TRESIBA FLEXTOUCH U-100 SUBCUT) Inject 1 Dose by subcutaneous injection daily. Active atorvastatin (LIPITOR) 10 mg tablet Take 10 mg by mouth daily with supper. Active LISINOPRIL ORAL Take 1 Tablet by mouth daily. Active Active Problems Problem Noted Date Diagnosed Date H/O cervical spine surgery 07/18/2020 Numbness and tingling in left hand 07/18/2020 Family History Medical History Relation Name Comments Diabetes Father High Cholesterol Father Hypertension Father Diabetes Mother Relation Name Status Comments Father Mother Social History Tobacco Use Types Packs/Day Years Used Date Smoking Tobacco: Never Alcohol Use Standard Drinks/Week Comments Yes 5.8 (1 standard drink = 0.6 oz p ure alcohol) SOCIAL Sex and Gender Information Value Date Recorded Sex Assigned at Not on file Legal Sex Male 1:50 PM CDT Gender Identity Not on file Sexual Orientation Not on file Occupation Industry Job Start Date Job End Date Not on file Not on file Not on file Not on file Last Filed Vital Signs Vital Sign Reading Time Taken Comments Blood Pressure 156/73 07/18/2020 10:56 AM CDT Pulse 97 07/18/2020 10:56 AM CDT Temperature 36.8 C (98.2 F) 07/18/2020 10:56 AM CDT Respiratory Rate 18 07/18/2020 10:56 AM CDT Oxygen Saturation 89% 09/19/2013 4:30 PM LOG CUT OFF SAWYER Inhaled Oxygen Concentration - - Weight 98.9 kg (218 lb) 07/18/2020 10:56 AM CDT Height 182.9 cm (6') 07/18/2020 10:56 AM CDT Body Mass Index 29.57 07/18/2020 10:56 AM CDT Plan of Treatment Health Maintenance Due Date Last Done Comments DIABETES ANNUAL FOOT EXAM 1975 DIABETES ANNUAL RETINAL EXAM 1975 DIABETES HBA1C Q 6 MONTHS 1975 DIABETES MICROALBUMIN ANNUAL SCREEN 1975 LDL CHOLESTEROL ANNUAL 1975 DTAP/TDAP/TD VACCINES (1 - Tdap) 1976 PNEUMOCOCCAL VACCINE 50+ YEARS (1 of 2 - PCV) 04/12/19 76 COLORECTAL SCREENING 2002 Colorectal Cancer Screening 2002 FIT-DNA Q 3 years 2002 FIT/FOBT Q 1 year 2002 Flex Sig/CT Colonography Q 5 years 2002 ZOSTER VACCINE (1 of 2) 2007 INFLUENZA VACCINE (#1) 2025 RSV VACCINE (60+ or ) (1 - 1-dose 75+ series) 2032 Insurance [employer] OPEN ACCESS Advance Directives For more information, please contact: [phone] * Full Code (Latest Code Status on File) Date Activated Date Inactivated Comments 09/19/2013 1:16 PM 09/19/2013 10:28 PM Care Teams Certified Drug Counselor Relationship Specialty Start Date End Date Nelly Mujica DO PCP - General Internal Medicine 05/20/20
--- OUTSIDE RECORDS SUMMARY | 2025-07-10 14:09 | XMS_ITS | Encounter Summary ---
Author Organization [facility] Healthcare Address [address] [place] [address] Care Team Providers Care Oil And Gas Superintendent Name Role Phone Aki Zhang MD Primary Care Provider [phone] Joey Torres DO Primary Care Provide r Encounter Details Date Type Department Care Team (Late st Contact Info) Description 03/04/2020 Telephone [facility] ([facility]) [address] [place] [id number] Martina Sevilla RN Social History Tobacco Use Types Packs/Day Years Used Date Smoking Tobacco: Never Smokeless Tobacco: Never Alcohol Use Standard Drinks/Week Comments Yes 6 (1 standard drink = 0.6 oz pur e alcohol) Sex and Gender Information Value Date Recorded Sex Assigned at Not on file 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
--- OUTSIDE RECORDS SUMMARY | 2025-07-10 14:09 | XMS_ITS | Clinical Summary ---
Author Organization [facility] Address [address] [place] [address] Care Team Providers Care Fertilizer Applicator Name Role Phone Joey Torres DO Primary Care Provide r Allergies No known active allergies Medications atorvastatin (LIPITOR) 40 mg tabletIndication s:hyperlipidemia Take 1 tablet (40 mg total) by mouth 9 Active lisinopril (PRINIVIL,ZESTRI L) 20 mg tabletIndication s:hypertension Take 1 tablet (20 mg total) by mouth every morning 9 Active Dexcom G6 Sensor device CHANGE EVERY 10 DAYS 0 Active Dexcom G6 Transmitter device CHANGE Q 3 MONTHS 0 Active TOUJEO MAX 300 unit/mL (3 mL) pen for injection Inject 86 Units as directed daily 4 Active NovoLOG 100 unit/mL (3 mL) pen for injection Inject under the skin 4 Active Active Problems Problem Noted Date Diagnosed Date Dysphagia, oropharyngeal phase 08/27/2022 Esophageal dysmotility 08/27/2022 Cervical spinal stenosis 08/25/2019 Overview (08/25/2019): Added automatically from request for surgery [id number] Osteoarthritis of cervical spine 10/29/2014 Type 2 diabetes mellitus 03/24/2014 Overview (02/11/2017): DMII WO CMP UNCNTRLD Pure hypercholesterolemia 03/24/2014 Overview (02/11/2017): PURE HYPERCHOLESTEROLEM Hypertension 03/24/2014 Overview (02/11/2017): HYPERTENSION NOS Cervicalgia 08/28/2013 Encounters Date Type Department Care Team Description 05/08/2025 9:45 AM CDT Office Visit [facility] Medicine Surgery [address] [facility] 6[address] [place] [address] [place] [address] Teena Jenkins MD PhD Cervicalgia (Primary Dx) from Last 3 Months Immunizations Immunization Administration Dates Next Due Influenza, Unspecified 08/08/2019,08/28/2018 Pfizer Sars-Cov-2 Bivalent Vaccination (12+ YRS) 10/23/2022 ZOSTER Recombinant 11/15/2019,09/13/2019 Surgical History Surgery Date Site/Laterality Comments OTHER SURGICAL HISTORY achelles tendon rupture: surgery NECK SURGERY 2012, 2014 neck surgery EYE SURGERY 11/08/2018 - 11/07/2019 cataract ROTATOR CUFF REPAIR 11/08/2009 - 11/07/2010 SPINE SURGERY 11/08/2018 - 11/07/2019 Medical History Medical History Date Comments Diabetes mellitus (HCC) Diabetes Hypertension Hypertension Hx Other Medical achelles tendon rupture Hyperlipidemia Hyperlipidemia Type 2 diabetes mellitus Arthritis Neck pain Cervical stenosis (uterine cervix) Family History Medical History Relation Name Comments Diabetes Father Diabetes type II Father D M Type II ; Heart disease Father Heart disease; Hypertension Father Diabetes Mother Diabetes type II Mother D M Type II ; Hypertension Mother Diabetes Sister Hypertension Sister Stroke Sister Relation Name Status Comments Father Alive Mother Alive Sister Social History Tobacco Use Types Packs/Day Years Used Date Smoking Tobacco: Never Smokeless Tobacco: Never Tobacco Cessation:Counseling Given: No Alcohol Use Standard Drinks/Week Comments Yes 6 (1 standard drink = 0.6 oz pur e alcohol) Sex and Gender Information Value Date Recorded Sex Assigned at Not on file Legal Sex Male 7:55 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 Gender Identity Not on file Sexual Orientation Not on file Obstetrics History Last Filed Vital Signs Vital Sign Reading Time Taken Comments Blood Pressure 112/60 10/19/2024 10:05 AM SURFACE WATER TECHNICIAN Pulse 76 10/19/2024 10:05 AM SURFACE WATER TECHNICIAN Temperature 36.4 C (97.5 F) 10/19/2024 9:29 AM SURFACE WATER TECHNICIAN Respiratory Rate 16 10/19/2024 10:05 AM SURFACE WATER TECHNICIAN Oxygen Saturation 95% 10/19/2024 10:05 AM SURFACE WATER TECHNICIAN Inhaled Oxygen Concentration - - Weight 93.9 kg (207 lb) 02/02/2025 10:21 AM CDT Height 180.3 cm (5' 11) 02/02/2025 10:21 AM CDT Body Mass Index 28.87 02/02/2025 10:21 AM CDT Plan of Treatment Health Maintenance Due Date Last Done Comments Albumin Creatinine Ratio, Urine 1957 Colon Cancer Screening-Colonoscopy 1957 Depression Screening 1957 Hemoglobin A1C 1957 Hepatitis C Screening 1957 Prostate Cancer Screening-PSA 1957 eGFR 1957 Dilated Eye Exam 1957 Foot Exam 1957 Hepatitis B Screening 1975 Pneumococcal vaccine 65+ (1 of 2 - PCV) 1976 Fall Risk Assessment 04/16/2021 04/16/2020 Well Visit 65+ 2022 Covid-19 Vaccine (5 - 2024-2 6 season) 2025 10/23/2022, 08/20/2021, 01/31/2021, Additional history exists Influenza Vaccine (#1) 2025 , 08/21/2022, 08/08/2019, Additional history exists Lipid Panel 05/03/2026 05/03/2025, 09/09, 10/22/2023, Additional history exists DTaP/Tdap/Td Vaccine (2 - Td or Tdap) 08/15/2031 08/15/2021 Zoster Vaccine Completed 01/03/2020, 06/2020, 09/13/2019 Medical Devices Implanted Type Area Tap And Die Maker Technician Device Identifier Shelf Expiration Date Model / Serial / Lot Vertebrae Back Insurance AETNA [facility] PPO [facility] [facility] Trans[employer] OPEN ACCESS TNA MEDICARE AETNA MEDICARE Advance Directives For more information, please contact: [phone] * Full Code (Latest Code Status on File) Date Activated Date Inactivated Comments 10/18/2019 4:06 PM 10/19/2019 7:30 PM Care Teams Fertilizer Applicator Relationship Specialty Start Date End Date Joey Torres DO [address] [place] [id number] PCP - General Family Medicine 08/27/22
== END 2025-07-10 13:49 | disposition home or self-care (01) ==
PROVIDERS: PCP Student in an Organized Health Care Education/Training Program; Visit Provider Student in an Organized Health Care Education/Training Program
DX: R93.89 Abnormal findings on diagnostic imaging of other specified body structures (principal); I70.211 Atherosclerosis of native arteries of extremities with intermittent claudication, right leg; E11.59 Type 2 diabetes mellitus with other circulatory complications
CPT/HCPCS: 93922